=== PATIENT | male | born 1955 | race Caucasian/White ===

== ENCOUNTER 2024-05-19 17:22 | Emergency (ER) | payer MEDICARE, SELFPAY ==
[2024-05-19] VITALS (8 sets, daily range): BP systolic 131–158; BP diastolic 62–82; PULSE 75–85; BMI 29.8
[2024-05-19 17:39] LABS: % Basophils 1.5 % (0-2); % Eosinophils 7.8 % (0-6); % Immature Granulocytes 0.3 % (0-0.5); % Lymphocytes 30.2 % (20.5-51.1); % Monocytes 8.7 % (1.7-9.3); % Neutrophils 51.5 % (42.2-75.2); Absolute Basophils 0.1 10^3/uL (0-0.2); Absolute Eosinophils 0.7 10^3/uL (0-0.7); Absolute Lymphocytes 2.6 10^3/uL (1.2-3.4); Absolute Monocytes 0.8 10^3/uL (0.1-0.6); Absolute Neutrophils 4.5 10^3/uL (1.4-6.5); Hematocrit 34.7 % (39.0-52.0); Hemoglobin 12.2 g/dL (13.0-18.0); Mean Corp Hgb Conc. 35.2 g/dL (33.0-37.0); Mean Corpuscular Hgb 32.6 pg (27.0-31.0); Mean Corpuscular Volume 92.8 fL (80.0-94.0); Nucleated Red Blood Cells % 0 % (-); Platelet Count 279 10^3/uL (130-400); Red Blood Cell Count 3.74 10^6/uL (4.70-6.10); Red Cell Dist. Width 12.3 % (11.5-14.5); White Blood Cell Count 8.8 10^3/uL (4.8-10.8)
[2024-05-19 17:52] LABS: ALT (SGPT) 19 U/L (0-50); AST (SGOT) 26 U/L (17-59); Alkaline Phosphatase 72 U/L (38-126); Blood Urea Nitrogen 14 mg/dl (9-20); Carbon Dioxide 22 mmol/L (22-30); Chloride 101 mmol/L (98-107); Estimated Creatinine Clearance 60 ml/min; Glucose 100 mg/dl (70-99); Potassium 4.1 mmol/L (3.5-5.1); Sodium 131 mmol/L (135-145); Total Bilirubin 0.6 mg/dl (0.2-1.3); Total Protein 6.3 g/dl (6.3-8.2); eGFR > 60.00
[2024-05-19 18:50] LABS: Troponin I < 0.012 ng/ml
[2024-05-19 21:11] LABS: Troponin I < 0.012 ng/ml
--- NOTE | 2024-05-19 21:19 | ED.GENMED ---
History of Present Illness
General
Chief Complaint: Fainting/Passed Out
Source: patient and spouse
Exam Limitations: none
Time Seen by Provider: 05/19/24 18:05
Nursing documentation reviewed up to this point in time: agreed with
History of Present Illness
History of Present Illness:
Patient to ED s/p syncopal event. States he sat down at table to eat and felt lightheaded and then passed out. WItnessed by spouse. He did not fall out of chair. States he felt weak, diaphoretic and nauseated after. was concerned that it
was caused by his heart. SHe gave him 1 SL NTG and called 911. When EMS arrived he was hypotensive. Gave 1LNS and BP returned to normal. He did not experience any cp/pressure. No SOB. Deniens headache or dizziness. Brought to ED via EMS for
eval. He is currently asymptomatic. Admits to drinking 3 beers prior to this episode.
Past History
Past History
ED Past Medical History: CAD (CA), HTN and Hypercholesterolemia
ED Past Surgical History: Cardiac (stents), Orthopedic and Other (dental implants)
Social History
Tobacco: Smoker
Alcohol: Daily (beer, vodka daily)
Drug: None
Personal:
Living: with family
Review of Systems
Review of Systems
Allergies reviewed?: Yes
All Other Systems: ROS reviewed and negative except as documented in HPI and ROS
Constitutional: Reports no symptoms
EENT: Reports no symptoms
Respiratory: Reports no symptoms
Cardiac: Reports diaphoresis and syncope (CLIENT DIRECTOR)
ABD/GI: Reports nausea
: Reports no symptoms
Musculoskeletal: Reports no symptoms
Skin: Reports no symptoms
Neurological: Reports no symptoms
Psychiatric: Reports no symptoms
Phy Exam
General Physical Exam
General Presentation: well appearing and no apparent distress
General age: appears stated age
General Skin: warm and dry
General Habitus: normal
General Mental: alert
Cardiovascular Exam
Cardiovascular Exam: regular rate/rhythm and no edema
Pulmonary Exam
Pulmonary Exam: lungs clear, no respiratory distress and chest non tender
Gastrointestinal Exam
Gastrointestinal Exam: non tender, soft, no organomegaly and no pulsatile mass
Neurological Exam
Neurological Exam: alert, oriented x3, CN II-XII intact, no motor deficits, no sensory deficits, speech normal and normal gait
Musculoskeletal Exam
Musculoskeletal Exam: full ROM and neuro vasc intact
Skin Exam
Skin Exam: normal color, warm/dry and no rash
Psychiatric Exam
Psychiatric Exam: normal mood/affect
Course
Orders/Labs/Results
Orders:
Orders
05/19/24 17:25
Electrocardiogram (*1) Urgent
Reason for Study: Syncope
05/19/24 17:26
EKG- Treatment ONCE
05/19/24 17:31
Complete Blood Count/With Diff Urgent
Comprehensive Metabolic Panel Urgent
05/19/24 18:22
Troponin I Urgent
05/19/24 19:52
Orthostatic VS- Treatment ONCE
05/19/24 20:30
Troponin I Urgent
Abnormal Lab Results
05/19/24
17:31
RBC 3.74 L 10^6/uL
(4.70-6.10)
Hgb 12.2 L g/dL
(13.0-18.0)
Hct 34.7 L %
(39.0-52.0)
MCH 32.6 H pg
(27.0-31.0)
Absolute Monos (auto) 0.8 H 10^3/uL
(0.1-0.6)
Eosinophils % 7.8 H %
(0-6)
Sodium 131 L mmol/L
(135-145)
Glucose 100 H mg/dl
(70-99)
05/19/24 17:31
0816/24 17:31
Vital Signs
Initial and Last Documented VS:
Initial Vital Signs
Temp Pulse Resp BP Pulse Ox
97.9 F 68 16 132/62 90
05/19/24 17:23 05/19/24 17:23 05/19/24 17:23 05/19/24 17:23 05/19/24 17:23
Last Documented Vital Signs
Temp Pulse Resp BP Pulse Ox
97.9 F 74 21 139/78 92
05/19/24 17:23 05/19/24 21:15 05/19/24 21:15 05/19/24 21:00 05/19/24 21:15
*Critical Care Note
Total Time (30-74mins, 75-104mins- exclusive of procedures): Not Applicable
Update Note
Update Note:
Labs, EKG reviewed with patient and family He remains asymptomatic in dept, No chest pain or SOB with episode today. Will discharge home and he will follow closely with PCP and cardiolgy. Given instructions on s/s to return to ED and he is
agreeable to plan.
ED Attending Note
-
Portions of this chart may have been created with voice recognition software.� Occasional wrong word or��sound alike� substitutions may have occurred due to the inherent limitations of voice recognition software.
Discharge Plan
Departure
Patient Disposition: Home (Routine Discharge)
Date of Disposition: 05/19/24
Time of Disposition: 21:13
Patient with high blood pressure during this ER visit?: No
Condition: Good
Discharge Problem:
Near syncope
Instructions: Near Fainting (DC)
Prescriptions:
No Action
lisinopril 10 MG tablet
10 mg PO DAILY
atorvastatin 40 MG tablet
40 mg PO QPM Qty: 90 5RF
clopidogrel 75 MG tablet
75 mg PO DAILY Qty: 90 5RF
nitroglycerin 0.4 MG tablet, sublingual
0.4 mg sublingual [id number] PRN (Reason: chest pain ) Qty: 25 5RF
aspirin 81 MG tablet,chewable
81 mg PO DAILY 0RF
metoprolol succinate 25 MG tablet extended release 24 hr
25 mg PO QPM Qty: 90 10RF
nicotine 14 MG patch 24 hour
14 mg transdermal DAILY Qty: 30 5RF
Referrals:
Davis Lomeli MD [Family Provider] - Tomorrow
Activity Restrictions/Additional Instructions:
Return to the emergency department immediately for any changes in/worsening of your symptoms.
Interventions
Interventions:
*Risk Screen - Suicide Last Done: 05/19/24 17:28
*General Assessment Last Done: 05/19/24 17:28
*Neglect/Abuse Screening Last Done: 05/19/24 17:28
ED- Fall Risk Assessment Last Done: 05/19/24 21:20
*ED COVID-19 Vaccine History Last Done: 05/19/24 17:28
*Nursing Disposition Last Done: 05/19/24 21:20
ED- Cardiac Assessment Last Done: 05/19/24 18:15
ED- Neurological Assessment Last Done: 05/19/24 18:15
Discharge Date and Time
Discharge Date/Time: 05/19/24 21:20
Print Language: [id number]
== END 2024-05-19 21:20 | disposition home or self-care (01) ==
LOC: EMR 17:22
PROVIDERS: Nurse Practitioner; EMERGENCY PHYSICIAN Emergency Medicine; FAMILY PHYSICIAN Family Medicine
DX: R55 Syncope and collapse (principal); R11.0 Nausea; I10 Essential (primary) hypertension; E78.00 Pure hypercholesterolemia, unspecified; I25.10 Atherosclerotic heart disease of native coronary artery without angina pectoris; F17.200 Nicotine dependence, unspecified, uncomplicated; I25.2 Old myocardial infarction; Z95.5 Presence of coronary angioplasty implant and graft; Z79.82 Long term (current) use of aspirin
CPT/HCPCS: 99283; 80053; 84484; 85025; 93005

== ENCOUNTER → 2024-11-06 08:41 | Outpatient (REF) | payer MEDICARE, SELFPAY ==
[2024-11-06 12:17] LABS: HDL Cholesterol 54 mg/dl; LDL Cholesterol, Calculated 61 mg/dl; Total Cholesterol 150 mg/dl (50-199); Triglyceride 175 mg/dl (10-149); Very Low Density Lipoprotein 35 mg/dl (0-30)
== END ==
LOC: HWLAB 08:41
PROVIDERS: ATTENDING PHYSICIAN Student in an Organized Health Care Education/Training Program; FAMILY PHYSICIAN Family Medicine
DX: I25.10 Atherosclerotic heart disease of native coronary artery without angina pectoris (principal)
CPT/HCPCS: 36415; 80061

== ENCOUNTER → 2024-11-15 09:59 | Outpatient (REF) | payer MEDICARE, SELFPAY | LOC: RCS 09:59 | PROVIDERS: ATTENDING PHYSICIAN Student in an Organized Health Care Education/Training Program; FAMILY PHYSICIAN Family Medicine | DX: I25.10 Atherosclerotic heart disease of native coronary artery without angina pectoris (principal) | CPT/HCPCS: 93017 ==

== ENCOUNTER → 2025-02-02 09:56 | Outpatient (REF) | payer MEDICARE, SELFPAY | LOC: HWRAD 09:56 | PROVIDERS: ATTENDING PHYSICIAN Family Medicine | DX: Z87.891 Personal history of nicotine dependence (principal) | CPT/HCPCS: 71271 ==

== ENCOUNTER → 2025-02-22 08:42 | Outpatient (REF) | payer MEDICARE, SELFPAY | LOC: RAD 08:42 | PROVIDERS: ATTENDING PHYSICIAN Family Medicine | DX: I71.40 Abdominal aortic aneurysm, without rupture, unspecified (principal); I25.10 Atherosclerotic heart disease of native coronary artery without angina pectoris; I10 Essential (primary) hypertension | CPT/HCPCS: 74174; Q9967 ==

== ENCOUNTER → 2025-05-18 08:35 | Outpatient (REF) | payer MEDICARE, SELFPAY | LOC: MRI 3T 08:35 | PROVIDERS: ATTENDING PHYSICIAN Family Medicine | DX: E27.8 Other specified disorders of adrenal gland (principal) | CPT/HCPCS: 74183; A9575 ==

== ENCOUNTER → 2025-09-12 09:17 | Outpatient (REF) | payer MEDICARE, SELFPAY | LOC: HWRAD 09:17 | PROVIDERS: ATTENDING PHYSICIAN Surgery Vascular Surgery; FAMILY PHYSICIAN Family Medicine | DX: I77.4 Celiac artery compression syndrome (principal) | CPT/HCPCS: 74176 ==